=== PATIENT | male | born 1955 | race Caucasian/White ===

== ENCOUNTER 2016-09-23 05:40 | Outpatient (RCR) | payer OTHER ==
[~2016-09-23] VITALS: Ht 177.8 cm; Wt 97.5 kg
[2016-09-23] MEDS ORDERED: Succinylcholine 20mg/ml 10ml vial ONE (05:41)
[2016-09-23] MEDS ORDERED: Midazolam 2mg/2ml Inj ONE (05:41)
[2016-09-23] MEDS ORDERED: Methohexital Sodium Syr 100mg/10ml IVP ONE (05:41)
[2016-09-23] MEDS ORDERED: NS 550ML IV ONE (05:41)
[2016-09-23] MEDS ORDERED: Ketorolac 30mg Inj ONE (05:41)
== END 2016-10-08 | disposition home or self-care (01) ==
LOC: ECT 05:40
DX: F32.3 Major depressive disorder, single episode, severe with psychotic features (principal); E03.9 Hypothyroidism, unspecified; Z85.828 Personal history of other malignant neoplasm of skin
CPT/HCPCS: 90870; J0330; J1885; J2250; J7040

== ENCOUNTER 2016-10-16 10:50 | Outpatient (RCR) | payer OTHER ==
[~2016-10-16] VITALS: Ht 177.8 cm; Wt 97.5 kg
[2016-10-16] MEDS ORDERED: Succinylcholine 20mg/ml 10ml vial ONE (10:51)
[2016-10-16] MEDS ORDERED: Methohexital Sodium Syr 100mg/10ml IVP ONE (10:51)
[2016-10-16] MEDS ORDERED: Midazolam 2mg/2ml Inj ONE (10:51)
[2016-10-16] MEDS ORDERED: Ketorolac 60mg Inj ONE (10:51)
[2016-10-16] MEDS ORDERED: NS 550ML IV ONE (10:51)
== END 2016-11-05 | disposition home or self-care (01) ==
LOC: ECT 10:50
DX: F32.3 Major depressive disorder, single episode, severe with psychotic features (principal)
CPT/HCPCS: 90870; J0330; J2250; J7040

== ENCOUNTER 2016-11-15 06:29 | Outpatient (RCR) | payer OTHER ==
[~2016-11-15] VITALS: Ht 177.8 cm; Wt 97.5 kg
[2016-11-15] MEDS ORDERED: NS 550ML IV ONE (06:30)
[2016-11-15] MEDS ORDERED: Midazolam 2mg/2ml Inj ONE (06:30)
[2016-11-15] MEDS ORDERED: Succinylcholine 20mg/ml 10ml vial ONE (06:30)
[2016-11-15] MEDS ORDERED: Ketorolac 60mg Inj ONE (06:30)
[2016-11-15] MEDS ORDERED: Methohexital Sodium Syr 100mg/10ml IVP ONE (06:30)
[2016-11-15] MEDS ORDERED: Atropine Sulfate 0.4mg/ml inj IVP PRN (09:03)
== END 2016-12-06 | disposition home or self-care (01) ==
LOC: ECT 06:29
DX: F32.3 Major depressive disorder, single episode, severe with psychotic features (principal)
CPT/HCPCS: 90870; J0330; J2250; J7040